=== PATIENT | female | born 1980 | race Caucasian/White ===

== ENCOUNTER 2017-11-11 21:37 | Emergency (ER) | payer OTHER ==
[~2017-11-11] VITALS: Ht 160 cm; Wt 54.4 kg
[~2017-11-11 21:37] MED LIST: ACCUNEB SO1.25 MG/1 INH; BUTALB-APAP-CA1 EACH PO; CEPHALEXIN 500500 M3 PO; CIPRO500 MG PO; CIPRODEX OTIC7.5 ML OTIC; FLEXERIL PO; HYDROCODONE-AP1 EAC6 PO; IBUPROFEN 800800 M1 PO; MEDROLDOSEPACK PO; NAPROSYN500 MG PO; NOHOMEMEDICATIONS; NORCO 5-325 TA1 EACH PO; PRENATAL PO; PROAIR HFA8.5 GM INH; PROMETHAZINE D480 ML PO; ZOFRAN ODT4 MG PO; ZPAK PO
[2017-11-11 22:16] LABS: ABSOLUTE BASOPHILS 0.1 thou/uL (0.0-0.2); ABSOLUTE EOSINOPHILS 0.7 thou/uL (0.0-0.7); ABSOLUTE LYMPHOCYTES 2.7 thou/uL (0.8-5.3); ABSOLUTE NEUTROPHILS 7.2 thou/uL (1.6-8.1); BASOPHILS 0.7 %; EOSINOPHILS 6.2 %; HEMATOCRIT 31.4 % (37.0-47.0); HEMOGLOBIN 10.1 gm/dL (12.0-15.0); LYMPHOCYTES 23.1 %; MCH 25.3 pg (26.0-34.0); MCHC 32.2 g/dL (28.0-37.0); MCV 78.4 fL (80.0-100.0); MONOCYTES 8.6 %; MPV 6.8 fl. (7.2-11.1); NUCLEATED RBCS 0 /100WBC; PLATELET COUNT* 439 thou/uL (150-400); POLYS 61.4 %; RBC 4.01 mil/uL (4.20-5.00); RDW-CV 16.7 % (10.5-14.5); WBC 11.7 thou/uL (4.0-11.0)
[2017-11-11 22:17] LABS: URINE BILIRUBIN NEGATIVE (Negative); URINE BLOOD NEGATIVE (Negative); URINE CLARITY CLEAR; URINE COLOR YELLOW; URINE GLUCOSE-RANDOM NEGATIVE (Negative); URINE KETONES TRACE (Negative); URINE LEUKOCYTES NEGATIVE (Negative); URINE NITRITE NEGATIVE (Negative); URINE PROTEIN TRACE (Negative); URINE SPECIFIC GRAVITY 1.025 (1.005-1.030); URINE UROBILINOGEN 0.2 E.U./dl (0.2-1.0)
[2017-11-11 22:25] LABS: CALCIUM 9.1 mg/dL (8.5-10.1); CREATININE 0.7 mg/dL (0.6-1.3); INR 1.1; POTASSIUM 3.2 mmol/L (3.5-5.1); PROTIME 10.4 Seconds (9.20-11.50)
[2017-11-11 22:29] LABS: TOTAL BILIRUBIN 0.2 mg/dL (<0.1-1.0); TOTAL PROTEIN 7.4 g/dL (6.4-8.2)
[2017-11-12] MEDS ORDERED: COLACE100 MG PO (00:32)
[2017-11-12] MEDS ORDERED: IBUPROFEN 600600 M1 PO (00:32)
[2017-11-12] MEDS ORDERED: TRAMADOL 50 MG50 MG PO (00:32)
[2017-11-12 00:45] VITALS: BP 130/60
== END 2017-11-12 00:45 | disposition home or self-care (01) ==
LOC: M.ERS 21:37
PROVIDERS: Physician Assistant
DX: E86.0 Dehydration (principal); D64.9 Anemia, unspecified; N83.201 Unspecified ovarian cyst, right side; J45.909 Unspecified asthma, uncomplicated; G43.909 Migraine, unspecified, not intractable, without status migrainosus; N80.9 Endometriosis, unspecified; Z88.0 Allergy status to penicillin; Z88.1 Allergy status to other antibiotic agents

== ENCOUNTER 2020-11-29 11:16 | Emergency (ER) | payer OTHER ==
[~2020-11-29] VITALS: Ht 160 cm; Wt 56.7 kg
[~2020-11-29 11:16] MED LIST changes: +COLACE100 MG PO; +IBUPROFEN 600600 M1 PO; +TRAMADOL 50 MG50 MG PO
[2020-11-29 13:01] LABS: ABSOLUTE BASOPHILS 0.1 thou/uL (0.0-0.2); ABSOLUTE EOSINOPHILS 0.4 thou/uL (0.0-0.7); ABSOLUTE LYMPHOCYTES 1.2 thou/uL (0.8-5.3); ABSOLUTE MONOCYTES 0.6 thou/uL (0.0-1.2); ABSOLUTE NEUTROPHILS 5.9 thou/uL (1.6-8.1); BASOPHILS 1.5 %; EOSINOPHILS 4.9 %; LYMPHOCYTES 14.6 %; MCH 29.2 pg (26.0-34.0); MCHC 33.3 g/dL (28.0-37.0); MCV 87.7 fL (80.0-100.0); MONOCYTES 7.5 %; MPV 6.9 fl. (7.2-11.1); NUCLEATED RBCS 0 /100WBC; PLATELET COUNT* 442 thou/uL (150-400); POLYS 71.5 %; RBC 4.45 mil/uL (4.20-5.00); RDW-CV 13.3 % (10.5-14.5); WBC 8.2 thou/uL (4.0-11.0)
[2020-11-29 13:11] LABS: CALCIUM 8.7 mg/dL (8.5-10.1); CREATININE 0.6 mg/dL (0.6-1.3); POTASSIUM 3.8 mmol/L (3.5-5.1)
[2020-11-29 13:15] LABS: ALBUMIN 4.5 g/dL (3.4-5.0); TOTAL BILIRUBIN 0.4 mg/dL (<0.1-1.0); TOTAL PROTEIN 7.6 g/dL (6.4-8.2)
[2020-11-29 15:47] VITALS: BP 121/70
--- NOTE | 2020-11-29 17:43 | EKG ---
[place] [address] ELECTROCARDIOGRAM REPORT Name: CAROLINEMAIA Nickerson Xochilt Room: [facility]#: [id number] Admission: 11/29/20 Attend Phys: Discharge: 11/29/20 Date of : 84 Date of Service: 11/29/20 1145 Report #: [id number] THIS REPORT FOR: //name// [facility] ED Test Date: 2020-11-29 Test Time: 11:45:26 Pat Name: MAIA CALDWELL Department: Room: Gender: F Turn Operator: : 1980 Requested By: Margarito Marie Order Number: [id number] MD: Manuel Nunez Measurements Intervals [place] Rate: 64 P: 50 TX: 130 QRS: 24 QRSD: 87 T: 33 QT: 427 QTc: 441 Interpretive Statements Sinus arrhythmia Compared to ECG 08/15/2014 23:33:12 Sinus rhythm no longer present Electronically Signed On 11-29-2020 17:43:34 CDT by Manuel Nunez [email or web address] <ELECTRONICALLY SIGNED> By: Manuel Nunez MD, [facility] 11/29/20 1743 1145 1145 Manuel Nunez MD, [facility] /EPI
== END 2020-11-29 15:47 | disposition home or self-care (01) ==
LOC: M.ERS 11:16
PROVIDERS: Emergency Medicine Emergency Medical Services
DX: R00.2 Palpitations (principal); R55 Syncope and collapse; J45.909 Unspecified asthma, uncomplicated; G43.909 Migraine, unspecified, not intractable, without status migrainosus; Z88.0 Allergy status to penicillin; Z88.1 Allergy status to other antibiotic agents